=== PATIENT | female | born 1995 | race Caucasian/White ===

== ENCOUNTER → 2022-06-07 | Outpatient (CLI) | payer BC ==
--- NOTE | 2022-06-07 15:45 | Diagnostic Imaging Report ---
PROCEDURE: Pelvic comp/transvaginal sonogram. TECHNIQUE: Complete transabdominal and transvaginal pelvic ultrasound was performed. In addition, limited pelvic Doppler was performed. INDICATION: Evaluate IUD. FINDINGS: Uterus is retroverted measuring 7.1 x 4.3 x 6.3 cm. Endometrium is 5 mm in thickness. IUD appears to be appropriately centered in the endometrial canal. No myometrial mass is identified. Right ovary measures 4.7 x 2.3 x 2.9 cm and left ovary measures 4.8 x 3.7 x 4.2 cm. There is a complex cystic mass in the left ovary measuring 3.2 x 3.4 x 2.1 cm. There is blood flow to both ovaries. Small amount of free fluid in the cul-de-sac and around the left ovary is noted. IMPRESSION: 1. The IUD is appropriately centered in the endometrial canal. 2. 3.2 cm x 3.4 cm probable hemorrhagic left ovarian cyst. Dictated by: Dictated on workstation # [id number]
== END ==
LOC: RAD 13:25
PROVIDERS: ATTEND Surgery
DX: Z30.431 Encounter for routine checking of intrauterine contraceptive device (principal)
CPT/HCPCS: 76830; 76856